=== PATIENT | male | born 1960 | race Asian ===

== ENCOUNTER 2020-05-08 14:09 | Emergency (ER) | payer SELFPAY ==
[~2020-05-08] VITALS: Ht 172.7 cm; Wt 68.0 kg
[2020-05-08 14:44] VITALS: BP 117/80
[2020-05-08] MEDS ORDERED: IBUPROFEN 800 MG TAB PO ONE (15:15)
[2020-05-08] MEDS ORDERED: TETANUS-DIPTH-ACEL PERTUSSIS 0.5ML SYR Tdap IM ONE (15:45)
== END 2020-05-08 16:05 | disposition home or self-care (01) ==
LOC: ER 14:09
DX: S61.151A Open bite of right thumb with damage to nail, initial encounter (principal); Y04.1XXA Assault by human bite, initial encounter; Y93.89 Activity, other specified; Y92.89 Other specified places as the place of occurrence of the external cause; Y99.8 Other external cause status
CPT/HCPCS: 11730; 73140; 90471; 90715